=== PATIENT | male | born 1965 | race Caucasian/White ===

== ENCOUNTER 2018-02-25 14:20 | Emergency (ER) | payer OTHER ==
[~2018-02-25] VITALS: Ht 182.9 cm; Wt 83.0 kg
[2018-02-25 14:26] VITALS: BP 127/76
[2018-02-25] MEDS ORDERED: bacitracin 15gm ointment TP ONE (15:15)
== END 2018-02-25 15:40 | disposition home or self-care (01) ==
LOC: ER 14:22
DX: S62.102D Fracture of unspecified carpal bone, left wrist, subsequent encounter for fracture with routine healing (principal); T79.A12D Traumatic compartment syndrome of left upper extremity, subsequent encounter; V86.59XD Driver of other special all-terrain or other off-road motor vehicle injured in nontraffic accident, subsequent encounter
CPT/HCPCS: 29105; 99283; A6449